=== PATIENT | female | born 1980 | race Caucasian/White ===

== ENCOUNTER → 2021-04-12 10:44 | Outpatient (CLI) | payer BC, SELFPAY ==
--- NOTE | ~2021-04-12 | MM_ITS ---
EXAMINATION: MM screening lenny BI w clare HISTORY: Screening mammogram TECHNIQUE: Craniocaudal and mediolateral oblique 3-D tomosynthesis images were obtained and synthetic 2-D images were generated. Bilateral rotated lateral cc views. CAD analysis was submitted and interp reted. COMPARISON: No prior mammogram is available for comparison at this institution. BREAST PARENCHYMAL COMPOSITION: There are scattered areas of fibroglandular density. FINDINGS: There is mild fibroglandular asymmetry. There is no evidence of suspicious mass, calcificat ion, or architectural distortion to suggest malignancy in either breast. There has been no suspicious interval change. IMPRESSION: 1. No mammographic evidence of malignancy. 2. Recommend routine screening mammography in one year. BI-RADS Category 2: Benign finding(s). Reviewed, dictated and finalized at location A. RTMENT HELPER
== END ==
PROVIDERS: Visit Provider Nurse Practitioner Obstetrics & Gynecology
DX: Z12.31 Encounter for screening mammogram for malignant neoplasm of breast (principal)
CPT/HCPCS: 77063; 77067

== ENCOUNTER → 2022-11-29 14:14 | Outpatient (CLI) | payer BC, SELFPAY ==
--- NOTE | ~2022-11-29 | MM_ITS ---
EXAMINATION: MM screening lenny BI w clare HISTORY: Screening mammogram TECHNIQUE: Craniocaudal and mediolateral oblique 3-D tomosynthesis images were obtained and synthetic 2-D images were generated. CAD analysis was submitted and interpreted. COMPARISON: 04/12/2021 bilateral screening mammogram examination BREAST PARENCHYMAL COMPOSITION: There are scattered areas of fibroglandular density. FINDINGS: Stable fibroglandular asymmetry is again noted. There is no evidence of suspicious mass, ca lcification, or architectural distortion to suggest malignancy in either breast. There has been no lezama spicious interval change. IMPRESSION: 1. No mammographic evidence of malignancy. 2. Recommend routine screening mammography in one year. BI-RADS Category 2: Benign finding(s). Reviewed, dictated and finalized at location A.
== END ==
PROVIDERS: PCP Nurse Practitioner Obstetrics & Gynecology; Visit Provider Nurse Practitioner Obstetrics & Gynecology
DX: Z12.31 Encounter for screening mammogram for malignant neoplasm of breast (principal)
CPT/HCPCS: 77063; 77067

== ENCOUNTER 2023-10-15 14:22 | Outpatient (CLI) | payer BC, SELFPAY ==
--- NOTE | ~2023-10-15 | XR_ITS ---
XR abdomen/kub 1V Ordering provider: Nubia Keith PA-C History: . KIDNEY STONE FU . Comparison: June 16, 2008 FINDINGS: BOWEL: Nonobstructive bowel gas pattern. ORGANOMEGALY: None. SIGNIFICANT PATHOLOGIC CALCIFICATIONS: Calcific shadow seen in the right renal area suggestive of a s tone. OTHER: IUD in the uterus.. No free air is seen under the diaphragm. Levoscoliosis. Postoperative changes in the lower thoracic area. Lumbarization of S1. IMPRESSION: NO ACUTE ABDOMINAL FINDINGS. Right renal stone. Reviewed, dictated and finalized at location A.
== END 2023-10-15 14:23 | disposition home or self-care (01) ==
LOC: ANHIMG 14:28
PROVIDERS: PCP Physician Assistant; Visit Provider Physician Assistant
DX: N20.0 Calculus of kidney (principal)
CPT/HCPCS: 74018

== ENCOUNTER 2023-10-21 15:19 | Outpatient (CLI) | payer BC, SELFPAY ==
--- NOTE | 2023-10-21 15:30 | ECG_ITS ---
Test Date: 2023-10-21 15:33:27 Measurements Intervals [place] Rate: 82 P: 21 NV: 133 QRS: 13 QRSD: 92 T: 11 QT: 390 QTc: 457 Interpretive Statements SINUS RHYTHM POOR R-WAVE PROGRESSION BORDERLINE ECG No previous ECG available for comparison Electronically Signed On 10-21-2023 16:03:42 CDT by Grover Conner M.D.
[2023-10-21 15:51] LABS: Anion Gap 7 mmol/L (4-12); Blood Urea Nitrogen 19 mg/dL (7-17); Calcium 9.1 mg/dL (8.4-10.2); Carbon Dioxide 27 mmol/L (22-30); Chloride 105 mmol/L (98-107); Estimated Glomerular Filt Rate > 60; Glucose 106 mg/dL (65-110); Potassium 3.5 mmol/L (3.4-5.0); Sodium 139 mmol/L (137-145)
== END 2023-10-21 15:20 | disposition home or self-care (01) ==
LOC: ANHSURGERY 15:22
PROVIDERS: Anesthesiology; PCP Physician Assistant; Visit Provider Urology
DX: E11.9 Type 2 diabetes mellitus without complications (principal); I10 Essential (primary) hypertension; Z01.818 Encounter for other preprocedural examination; R94.31 Abnormal electrocardiogram [ECG] [EKG]
CPT/HCPCS: 36415; 80048; 93005

== ENCOUNTER 2023-10-24 01:29 | Day surgery (SDC) | payer BC, SELFPAY ==
[2023-10-18 10:19] VITALS: BMI 28.3
--- NOTE | 2023-10-18 10:20 | PC.NURSE ---
Report to the Outpatient Waiting Room, entrance under the green pavilion located off [facility], at time _1000_ on date _[id number]_. Planned Procedure Time: _1200_. Time changes happen often and if your time is changed the preop area will call you the afternoon before. - You and your visitor will be asked to self-screen and do not enter if you have any COVID symptoms. - A mask is optional within the hospital at this time. Patients may have clear liquids (water, carbonated beverages, clear teas, apple juice) until 3 hours prior to surgery with a maximum of 20 ounces. - No food from midnight until time of surgery Take the following medications with a SIP of water the morning of surgery: __Amlodipine DO NOT STOP ANY OF YOUR OTHER PRESCRIPTION MEDICATIONS PRIOR TO SURGERY ?EXCEPT THE FOLLOWING Medications to discontinue per physician Vitamins Date to take last aqhl___[id number] Please no make-up, nail greek, hairspray, perfume, deodorant, or body powder the day of surgery. No jewelry (including any body piercings) or valuables the day of surgery, leave them at home. Please take a shower or bath the night before, or the morning of, surgery with an antibacterial soap. Wear comfortable, loose fitting clothing. - Jewelry must be removed prior to entering the operating room. Rings and piercings that are not removed may be cut off. - The hospital will not accept responsibility for valuables. - Please leave all valuables, including medications, at home the day of surgery. If you are going home after surgery, a licensed delivery truck driver heavy must drive you home. - NO public transportation without another adult if you receive anesthesia. - We recommend that an adult stay with you for 24 hours following discharge. - We also recommend that you do not drive, make important decision, drink alcoholic beverages, or take any drugs that were not prescribed by your health care provider for at least 24 hours after your discharge time. Follow any additional instructions given to you from your surgeon. If you or anyone in your household have experienced Covid symptoms in the past week, please notify your surgeon or the nurse liaison at the phone number below for possible testing. Telephone instructions given to __Tara__and asked if any additional questions and then verbalized understanding. Patient advised to call surgeon office or pre surgery nurse liaison [phone] if any additional questions.
[2023-10-24] VITALS (8 sets, daily range): BP systolic 137–162; BP diastolic 89–97; PULSE 58–78; RESP 14–18; TEMP 36.3–36.9; O2SAT 97–100
--- NOTE | ~2023-10-24 | XR_ITS ---
EXAMINATION: XR retrograde pyelo w/stent LT DATE: 10/24/2023 12:14 INDICATION: Left ureteral stone. TECHNIQUE: 35 intraoperative fluoroscopic views of the abdomen and pelvis were obtained. I was not pr esent. Fluoroscopy exposure time was 31 seconds. COMPARISON: Abdomen radiograph 10/15/2023 FINDINGS: There is an 8 mm stone in right kidney. The left-sided retrograde pyelogram demonstrate hyd ronephrosis. The final images demonstrate a left internal ureteral stent in expected position. There is an intrauterine device in expected position. IMPRESSION: 1. Left internal ureteral stent in expected position. 2. Right kidney stone. Reviewed, dictated and finalized at location A.
--- NOTE | 2023-10-24 05:58 | WPDHPUPDATE1 ---
History and Physical Update Update Date/Time: 10/24/23 05:58 History and Physical has been reviewed, including an updated exam of the patient. There are NO changes in the patient's condition. Risks, benefits, and alternatives have been discussed and questions answered. Patient agrees to proceed with procedure.
[2023-10-24] MEDS: LACTATED RINGERS 1,000 ML 30 ML IV CONT (10:30)
[2023-10-24 10:41] LABS: Glucose Point of Care 108 mg/dl (65-105)
--- NOTE | 2023-10-24 10:59 | P.PNAN_ITS ---
Anes - Initial Pre Proc Eval Procedure: Operation Date: 10/24/23 12:00 Proposed Procedures p Cystoscopy, Left Ureteroscopy, Possible Left Retrograde Pyelogram, Possible Left Stone Extraction, Possible Left Stent Placement, Possible Holmium Laser Procedure - Vadim Navarro MD Date/Time: 10/24/23 10:59 Surgeon: Vadim Navarro MD Pre Op Diagnosis: left ureteral stones Patient Data Age: 43 Gender: F Height: 1.63 m Weight: 76.25 kg Last Vital Signs Temp 36.9 C 10/24/23 10:52 Pulse 78 10/24/23 10:52 Resp 16 10/24/23 10:52 BP 151/95 H 10/24/23 10:52 Pulse Ox 99 10/24/23 10:52 O2 Del Method Room Air 10/24/23 10:52 Allergies Allergy/AdvReac Type Severity Reaction Status Date / Time Penicillins Allergy Mild Rash Unverified 10/24/23 10:43 Home Medications Medication Instructions Recorded Confirmed Type amlodipine 10 mg tablet 10 mg PO DAILY 10/18/23 10/24/23 History metformin 500 mg tablet,extended 500 mg PO DAILY 10/18/23 10/24/23 History release 24 hr multivitamin 1 tablet PO DAILY 10/18/23 10/24/23 History zinc 50 mg tablet 50 mg PO DAILY 10/18/23 10/24/23 History Laboratory Tests 10/24/23 10:36 POC Capillary Glucose 108 H mg/dl (65-105) Patient hx anesthesia problems: none Family hx anesthesia problems: none Results Review: All pre-operative results and documents have been reviewed as part of the pre- operative evaluation. [facility] Social History Social History Smoking status: Never smoker Alcohol intake: current Drinks per week: 1 Living arrangements: with family Spiritual care concerns: No Anes - Eval Final PreProcedure Day of Procedure 10/24/23 10:59 Patient weight: overweight Heart: regular rate and rhythm Lungs: clear to auscultation Airway: Mallampati scale class II Neurological: alert and oriented Last oral intake: >/= 8 hours ASA classification: III Emergent: no Anesthetic plan: proceed Anesthesia type and monitoring: general LMA and standard monitoring Results Review: All pre-operative results and documents have been reviewed as part of the pre- operative evaluation. Informed Consent: The patient's anesthetic plan and its attendant risks and benefits were d iscussed with the patient/family/POA. Questions were solicited and answers provided to the satisfaction of the patient/family/POA.
[2023-10-24] MEDS: ceFAZolin 2 GM/D5W 50 ML 2 GM/50 ML BAG IVPB (11:31)
--- NOTE | 2023-10-24 12:08 | W.PM.PROC2 ---
Procedure Note - Detailed Date of Procedure 10/24/23 Pre-op Diagnosis Left ureteral stones Post-op Diagnosis Same Procedure Performed Cystoscopy, left ureteroscopy with laser lithotripsy, stone extraction, retrograde pyelography and stent placement Surgeon Vadim Navarro MD Anesthesia General Description of Procedure Patient is brought to the operative suite where she has prepped draped in routine sterile fashion while in dorsal lithotomy position after the uneventful induction of a general LMA anesthetic. Cystoscopy was undertaken with a 19 F rigid cystoscope. Bladder neck and urethra are normal. There was no intravesical foreign body or neoplasm. She has a single orthotopic ureteral orifice bilaterally. A 0.035 in glidewire was advanced in the left ureteral orifice and a 8 F 10 F dilators used to dilate the distal ureter. Ureteroscopy was undertaken with a short tapered semi-rigid ureteral scope. She has 2 stones which were very impacted at the level of the left iliac vessels. Using a 272 micron Esau laser fiber the stones were dusted and all fragments were extracted with a 1.9 F disposable stone basket. Retrograde pyelogram was obtained to ensure appropriate placement of a 4.8 F double-J ureteral stent with the proximal coil in the renal pelvis and distal coil in the bladder. Scopes and wires removed and she was taken the recovery room in good condition having tolerated this well. Drains Yes Packing No Pathology Yes Complications No immediate complications
[2023-10-24] MEDS: oxyCODONE HCL (*CRX) 5 MG TAB IR PO (13:03)
== END 2023-10-24 13:51 | disposition home or self-care (01) ==
PROVIDERS: PCP Physician Assistant; Visit Provider Urology
PROC: (CPT 52352; principal; 2023-10-24 12:00)
DX: N20.1 Calculus of ureter (principal); Z79.84 Long term (current) use of oral hypoglycemic drugs
CPT/HCPCS: 52356; 74420; 82365; 82948; 88300; A9270; C1769; C2617; J0690; J1100; J2250; J2405; J2704; J3010; J7120; Q9966

== ENCOUNTER 2023-11-29 08:05 | Outpatient (CLI) | payer BC, SELFPAY ==
[2023-11-29 09:04] LABS: Prothrombin Time 13.5 Seconds (11.1-14.7)
[2023-11-29 09:05] LABS: Partial Thromboplastin Time 27.4 Seconds (22.3-36.8)
== END 2023-11-29 08:06 | disposition home or self-care (01) ==
PROVIDERS: PCP Physician Assistant; Visit Provider Urology
DX: N20.0 Calculus of kidney (principal)
CPT/HCPCS: 36415; 85610; 85730; 87086

== ENCOUNTER 2023-12-06 01:00 | Day surgery (SDC) | payer BC, SELFPAY ==
[2023-11-28 14:01] VITALS: BMI 28.3
--- NOTE | 2023-11-28 14:01 | PC.NURSE ---
Report to the Outpatient Waiting Room, entrance under the green pavilion located off [facility], at time _0800_ on date _[id number]_. Planned Procedure Time: _1000_. Time changes happen often and if your time is changed the preop area will call you the afternoon before. - You and your visitor will be asked to self-screen and do not enter if you have any COVID symptoms. - A mask is optional within the hospital at this time. Patients may have clear liquids (water, carbonated beverages, clear teas, apple juice) until 3 hours prior to surgery with a maximum of 20 ounces. - No food from midnight until time of surgery Take the following medications with a SIP of water the morning of surgery: __Amlodipine DO NOT STOP ANY OF YOUR OTHER PRESCRIPTION MEDICATIONS PRIOR TO SURGERY ?EXCEPT THE FOLLOWING Medications to discontinue per physician Mulitivitamin and zinc Date to take last biiu____[id number] Please no make-up, nail bolivian, hairspray, perfume, deodorant, or body powder the day of surgery. No jewelry (including any body piercings) or valuables the day of surgery, leave them at home. Please take a shower or bath the night before, or the morning of, surgery with an antibacterial soap. Wear comfortable, loose fitting clothing. - Jewelry must be removed prior to entering the operating room. Rings and piercings that are not removed may be cut off. - The hospital will not accept responsibility for valuables. - Please leave all valuables, including medications, at home the day of surgery. If you are going home after surgery, a licensed sales warehouse driver must drive you home. - NO public transportation without another adult if you receive anesthesia. - We recommend that an adult stay with you for 24 hours following discharge. - We also recommend that you do not drive, make important decision, drink alcoholic beverages, or take any drugs that were not prescribed by your health care provider for at least 24 hours after your discharge time. Follow any additional instructions given to you from your surgeon. If you or anyone in your household have experienced Covid symptoms in the past week, please notify your surgeon or the nurse liaison at the phone number below for possible testing. Telephone instructions given to __Tara___and asked if any additional questions and then verbalized understanding. Patient advised to call surgeon office or pre surgery nurse liaison [phone] if any additional questions.
[2023-12-06] VITALS (9 sets, daily range): BP systolic 116–137; BP diastolic 77–91; PULSE 65–75; RESP 12–20; TEMP 36.1–36.5; O2SAT 97–100
--- NOTE | ~2023-12-06 | XR_ITS ---
XR abdomen/kub 1V 12/06/2023 08:15 Indication: Preop ESWL Procedure: KUB Comparison: 10/15/2023 Findings: Bowel gas pattern is nonobstructive. Moderate colonic fecal loading. there is a right renal stone. There are pelvic phleboliths. There is an IUD present in the pelvis. There is scoliosis. Ther e are surgical changes of the lower thoracic spine. Impression: 1: Right renal stone measuring 1 cm. Reviewed, dictated and finalized at location B. Impression: 1: Right renal stone measuring 1 cm.
--- NOTE | 2023-12-06 06:18 | WPDHPUPDATE1 ---
History and Physical Update Update Date/Time: 12/06/23 06:18 History and Physical has been reviewed, including an updated exam of the patient. There are NO changes in the patient's condition. Risks, benefits, and alternatives have been discussed and questions answered. Patient agrees to proceed with procedure.
[2023-12-06 08:44] LABS: Glucose Point of Care 100 mg/dl (65-105)
[2023-12-06] MEDS: LACTATED RINGERS 1,000 ML 30 ML IV CONT ×2 (09:00→10:50)
[2023-12-06 09:09] LABS: BEDSIDEPREGUCG Negative
--- NOTE | 2023-12-06 09:18 | P.PNAN_ITS ---
Anes - Initial Pre Proc Eval Procedure: Operation Date: 12/06/23 10:00 Proposed Procedures p Right Extracorporeal Shock Wave Lithotripsy - Vadim Navarro MD Date/Time: 12/06/23 09:18 Surgeon: Vadim Navarro MD Pre Op Diagnosis: right kidney stone Patient Data Age: 43 Gender: F Height: 1.63 m Weight: 77.3 kg Last Vital Signs Temp 36.5 C 12/06/23 08:30 Pulse 66 12/06/23 08:30 Resp 16 12/06/23 08:30 BP 118/87 12/06/23 08:30 Pulse Ox 100 12/06/23 08:30 O2 Del Method Room Air 12/06/23 08:30 Allergies Allergy/AdvReac Type Severity Reaction Status Date / Time Penicillins Allergy Mild Rash Verified 12/06/23 08:58 Home Medications Medication Instructions Recorded Confirmed Type amlodipine 10 mg tablet 10 mg PO DAILY 10/18/23 12/06/23 History metformin 500 mg tablet,extended 500 mg PO DAILY 10/18/23 11/28/23 History release 24 hr multivitamin 1 tablet PO DAILY 10/18/23 11/28/23 History zinc 50 mg tablet 50 mg PO DAILY 10/18/23 11/28/23 History Laboratory Tests 12/06/23 12/06/23 08:30 08:40 POC Capillary Glucose 100 mg/dl (65-105) POC Urine HCG, Qual Negative POC Ur Preg QC Yes Patient hx anesthesia problems: none Family hx anesthesia problems: none Results Review: All pre-operative results and documents have been reviewed as part of the pre- operative evaluation. [facility] Social History Social History Smoking status: Never smoker Alcohol intake: current Drinks per week: 1 Living arrangements: with family Spiritual care concerns: No Anes - Eval Final PreProcedure Day of Procedure 12/06/23 09:18 Patient weight: overweight Heart: regular rate and rhythm Lungs: clear to auscultation Airway: Mallampati scale class II Neurological: alert and oriented Last oral intake: >/= 8 hours ASA classification: III Emergent: no Anesthetic plan: proceed Anesthesia type and monitoring: general LMA and standard monitoring Results Review: All pre-operative results and documents have been reviewed as part of the pre- operative evaluation. Informed Consent: The patient's anesthetic plan and its attendant risks and benefits were discussed with the patient/family/POA. Questions were solicited and answers provided to the satisfaction of the patient/family/POA.
[2023-12-06] MEDS: SCOPOLAMINE 1 MG PATCH 1 PATCH TRANSDERM (09:30)
[2023-12-06] MEDS: ceFAZolin 2 GM/D5W 50 ML 2 GM/50 ML BAG IVPB (10:08)
--- NOTE | 2023-12-06 10:26 | W.PM.PROC2 ---
Procedure Note - Detailed Date of Procedure 12/06/23 Pre-op Diagnosis Right kidney stone Post-op Diagnosis Same Procedure Performed Right ESWL Surgeon Vadim Navarro MD Anesthesia General Description of Procedure The patient was brought to the operative suite where he was placed in the supine position on the Dornier lithotripsy table. The focal point of the lithotripter was placed at a 1cm right calculus. A total of 2500 shocks were delivered at a power setting of 4. There appeared to be good fragmentation of the stone. The patient tolerated the procedure well and was taken to the recovery room in good condition. Estimated Blood Loss 0 Drains No Packing No
[2023-12-06 10:56] LABS: Glucose Point of Care 99 mg/dl (65-105)
[2023-12-06] MEDS: oxyCODONE HCL (*CRX) 5 MG TAB IR PO (12:03)
== END 2023-12-06 12:39 | disposition home or self-care (01) ==
PROVIDERS: PCP Physician Assistant; Visit Provider Urology
PROC: (CPT 50590; principal; 2023-12-06 10:00)
DX: N20.0 Calculus of kidney (principal); Z79.84 Long term (current) use of oral hypoglycemic drugs
CPT/HCPCS: 50590; 74018; 82948; A9270; J0690; J2250; J2405; J2704; J3010; J7120

== ENCOUNTER 2024-04-15 15:21 | Outpatient (CLI) | payer BC, SELFPAY ==
--- NOTE | ~2024-04-15 | MM_ITS ---
EXAMINATION: MM screening lenny BI w clare HISTORY: Screening TECHNIQUE: Craniocaudal and mediolateral oblique 3-D tomosynthesis images were obtained and synthetic 2-D images were generated. CAD analysis was submitted and interpreted. COMPARISON: Comparison to multiple prior studies sequentially, with oldest reviewed study dated 03/29. BREAST PARENCHYMAL COMPOSITION: Not dense: There are scattered areas of fibroglandular density. FINDINGS: There is no evidence of suspicious mass, calcification, or architectural distortion to sugg est malignancy in either breast. There has been no suspicious interval change. IMPRESSION: 1. No mammographic evidence of malignancy. 2. Recommend routine screening mammography in one year. BI-RADS Category 1: Negative Reviewed, dictated and finalized at location B. RITIES RESEARCH ANALYST
== END 2024-04-15 15:22 | disposition home or self-care (01) ==
PROVIDERS: PCP Physician Assistant; Visit Provider Physician Assistant
DX: Z12.31 Encounter for screening mammogram for malignant neoplasm of breast (principal)
CPT/HCPCS: 77063; 77067